=== PATIENT | female | born 1965 | race Caucasian/White ===

== ENCOUNTER 2024-11-15 07:28 | Emergency (ER) | payer OTHER, SELFPAY ==
[2024-11-15 07:40] VITALS: BP 135/103
--- NOTE | 2024-11-15 08:37 | ED.GENMED ---
History of Present Illness
General
Chief Complaint: Musculo-Skeletal Complaint
Source: patient
Time Seen by Provider: 11/15/24 08:13
History of Present Illness
History of Present Illness:
59-year-old female with no significant past medical history presenting to the emergency department for evaluation after she has been experiencing approximately 5 days of left-sided hip pain radiating down her leg into her foot, seen at urgent care 2
days ago, had x-rays done of the hip and lumbar spine without any abnormality seen and discharged with Flexeril and a Medrol Dosepak but has not had any relief. Patient has also been using ibuprofen with last dose being this morning prior to
arrival. Denies any traumatic injuries, focal weakness or numbness, fevers or infectious symptoms, abnormal weight loss, history of substance abuse, saddle anesthesias or any other concerns. She does note having intermittent sciatica in the past
but states this seems to be the worst that its ever been. No other concerns presently
Past History
Past History
ED Past Medical History: None
ED Past Surgical History: Other
Social History
Tobacco: Smoker
Alcohol: Daily (1 to 2 glasses of wine at night)
Drug: None
Personal:
Living: alone
Review of Systems
Review of Systems
All Other Systems: ROS reviewed and negative except as documented in HPI and ROS
Phy Exam
Physical Exam
Physical Exam:
GENERAL: Alert , in no apparent distress but does appear uncomfortable with movements, intermittently grimacing
EYE: clear conjunctiva b/l
NECK: Supple
ENT: o/p clr, mmm.
BACK: Normal range of motion however has pain with movements, no focal tenderness, no midline bony tenderness, no rashes
NEUROLOGICAL: Alert and oriented, no focal neuro deficits. Patellar deep tendon reflexes intact and equal bilaterally, sensation grossly intact and equal to light touch bilateral lower extremities, negative straight leg raise bilateral
SKIN: Warm and dry, skin intact.
MUSCULOSKELETAL: No edema, well perfused. EHL intact bilaterally
PSYCH: Normal and appropriate interaction.
Scores
Heart Failure Risk
Heart Failure Risk Score: Not Applicable
Heart Score for Chest Pain Patients
STEMI patient?: Not applicable
Withdrawal Assessment of Alcohol
Withdrawal Assessment Completed?: Not applicable
Course
Orders/Labs/Results
Orders:
Orders
11/15/24 08:34
Lidocaine [Lidocaine 4% Patch] 1 patch TOPICAL NOW STA
Apply Lidocaine patch(s) to:: left lower back
Oxycodone/Acetaminophen [Percocet 5/325] 1 tablet PO NOW STA
Vital Signs
Initial and Last Documented VS:
Initial Vital Signs
Temp Pulse Resp BP Pulse Ox
98 F 71 16 135/103 99
11/15/24 07:40 11/15/24 07:40 11/15/24 07:40 11/15/24 07:40 11/15/24 07:40
Last Documented Vital Signs
Temp Pulse Resp BP Pulse Ox
97.6 F 68 20 126/81 97
11/15/24 08:44 11/15/24 08:44 11/15/24 08:44 11/15/24 08:44 11/15/24 08:44
MDM/Problems Addressed
Differential Diagnosis Includes:
Sciatica, disc herniation, nerve impingement, spinal stenosis, arthritic changes, I do not have concern for infectious etiology and patient without symptoms to suggest neurogenic claudication
MDM/Problems Addressed:
59-year-old female presenting to the ER for musculoskeletal hip/back pain radiating down her left leg. No relief with steroid taper, anti-inflammatories and muscle relaxer. Based off presentation and description of symptoms I do suspect
sciatica/nerve impingement to be the most likely diagnosis. Patient without symptoms to suggest any acute emergent pathologies for her back/hip pain. No trauma to suspect fracture. Patient already had imaging at the urgent care. We discussed
likely need for further advanced imaging such as MRI but at this time patient without any reasons for emergent MRI. Will trial Percocet and topical agents here. Anticipate discharge home with outpatient management.
*Pulse Oximetry
Patient hypoxic: no
*Critical Care Note
Total Time (30-74mins, 75-104mins- exclusive of procedures): Not Applicable
Patient Management
Social determinants of health affecting care: Living situation and Strong social support
Escalation/DeEscalation of care consider admission/obs:
Patient noted some relief with the Percocet. Prescription for this and baclofen sent to pharmacy. Patient advised to discontinue use of Flexeril, not to mix the muscle relaxant with the Percocet and avoid alcohol while taking these medications.
Patient expressed understanding. Information for outpatient follow-up was provided. Patient aware of return precautions to the ER.
ED Attending Note
-
Portions of this chart may have been created with voice recognition software.� Occasional wrong word or��sound alike� substitutions may have occurred due to the inherent limitations of voice recognition software.
Discharge Plan
Departure
Patient Disposition: Home (Routine Discharge)
Date of Disposition: 11/15/24
Time of Disposition: 09:20
Patient with high blood pressure during this ER visit?: Yes
Discharge Problem:
Dorsalgia of lumbosacral region
Instructions: Sciatica - ED discharge instructions
Prescriptions:
New
oxycodone-acetaminophen [Percocet] 5-325 mg tablet
1 tab PO Q6HPRN PRN (Reason: pain) Qty: 8 0RF
baclofen 10 mg tablet
10 mg PO BID Qty: 10 0RF
Referrals:
Benji Hidalgo MD [Active] -
Dioni Cochran MD [Active] -
UNKNOWN - PT DOES,NOT KNOW [Family Provider] -
Stand Alone Forms: Return to Work
Interventions
Interventions:
*Risk Screen - Suicide Last Done: 11/15/24 07:40
*General Assessment Last Done: 11/15/24 08:44
*Neglect/Abuse Screening Last Done: 11/15/24 07:40
*ED- Fall Risk Assessment Last Done: 11/15/24 08:44
*ED COVID-19 Vaccine History Last Done: 11/15/24 08:44
ED-Musculoskeletal Assessment Last Done: 11/15/24 08:44
Discharge Date and Time
Print Language: HEBREW
[2024-11-15] MEDS: PERCOCET 5/325 1 TABLET PO (08:40)
[2024-11-15 08:44] VITALS: BP 126/81; BMI 25.0
== END 2024-11-15 09:26 | disposition home or self-care (01) ==
LOC: EMR 07:28
PROVIDERS: EMERGENCY PHYSICIAN Emergency Medicine
DX: M54.50 Low back pain, unspecified (principal); M25.552 Pain in left hip; M79.605 Pain in left leg; R03.0 Elevated blood-pressure reading, without diagnosis of hypertension; F17.200 Nicotine dependence, unspecified, uncomplicated
CPT/HCPCS: 99283